=== PATIENT | male | born 1940 | race Caucasian/White ===

== ENCOUNTER 2021-08-07 07:33 | Outpatient (CLI) | payer MEDICARE, SELFPAY ==
--- NOTE | 2021-08-07 07:50 | USCV_ITS ---
Tony Pedro Age: 81 Gender: M : 1940 Exam Date: 08/07/2021 08:08 Ordering Phys: Oliver Elias Technologist: LISA Exam Location: [facility] [place] Indication: KNOWN AAA, PRIORS DONE IN [facility]. RECENT FEM/FEM BYPASS DONE IN [place]. BACK PAIN. HISTORY: Diameter (cm) AP x Transverse x Length Velocity (cm/s) Waveform Prox Aorta: 2.40 x 2.54 x 24.80 Mid Aorta: 2.07 x 2.48 x 26.90 Distal Aorta: 4.47 x 5.13 x 13.70 Right Iliac Prox: 1.07 x 1.38 x 139.20 Left Iliac Prox: 0.95 x 1.50 x ABSENT Stent Prox Landing x x Aneurysmal Sac Max x x Lt Lat Sac Dim Rt Lat Sac Dim Stent Dist Landing x x Right Iliac Stent x x Left Iliac Stent x x Right Renal Art Left Renal Art FINDINGS: Fusiform dilatation of the infrarenal aorta Moderate heterogeneous mass in the lumen of the aneurysm No Doppler flow signals in the left proximal common iliac artery CONCLUSIONS 1. Infrarenal abdominal aortic aneurysm, measuring 4.47 x 5.13 cm. 2. Features of intraluminal circumferential thrombus with a thickness of 1.2 cm anteriorly and 0.8 cm posteriorly. 3. 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 No similar previous studies are available for comparison Dr Rebecca Yeh MD [facility] (Electronically Signed) Final Date: 07 August 2021 20:36 S
== END 2021-08-07 07:34 | disposition home or self-care (01) ==
PROVIDERS: Visit Provider Nurse Practitioner
DX: I71.4 Abdominal aortic aneurysm, without rupture (principal)
CPT/HCPCS: 93978

== ENCOUNTER → 2021-10-10 14:11 | Outpatient (BNVA) | payer MEDICARE, OTHER, SELFPAY | PROVIDERS: PCP Nurse Practitioner; Referring Provider Nurse Practitioner; Visit Provider Specialist | DX: G56.03 Carpal tunnel syndrome, bilateral upper limbs (principal); G56.22 Lesion of ulnar nerve, left upper limb | CPT/HCPCS: 95910; 95913 ==

== ENCOUNTER → 2022-03-04 12:39 | Outpatient (BNVA) | payer MEDICARE, OTHER, SELFPAY | PROVIDERS: PCP Nurse Practitioner; Visit Provider Specialist | DX: G56.03 Carpal tunnel syndrome, bilateral upper limbs (principal); M16.0 Bilateral primary osteoarthritis of hip; M25.561 Pain in right knee; M25.562 Pain in left knee; M54.50 Low back pain, unspecified | CPT/HCPCS: 99204 ==

== ENCOUNTER → 2022-03-24 10:42 | Outpatient (BNVA) | payer MEDICARE, OTHER, SELFPAY | PROVIDERS: PCP Nurse Practitioner; Referring Provider Specialist; Visit Provider Specialist | DX: G56.03 Carpal tunnel syndrome, bilateral upper limbs (principal) | CPT/HCPCS: 73110; 99204 ==

== ENCOUNTER → 2022-04-02 13:56 | Outpatient (BNVA) | payer MEDICARE, OTHER, SELFPAY | PROVIDERS: PCP Nurse Practitioner; Visit Provider Specialist | DX: S82.092 Other fracture of left patella (principal); M17.32 Unilateral post-traumatic osteoarthritis, left knee; M53.3 Sacrococcygeal disorders, not elsewhere classified; V89.2XXD Person injured in unspecified motor-vehicle accident, traffic, subsequent encounter | CPT/HCPCS: 73502; 73560; 73565; 99214 ==